=== PATIENT | female | born 1930 | race Caucasian/White ===

== ENCOUNTER 2016-09-19 12:18 | Emergency (ER) | payer MEDICARE ==
[~2016-09-19 12:18] MED LIST: ACETAMINOPHEN500 M1 PO; ADVAIR 100-501 EACH INH; COUMADIN4 MG PO; DIGITEK125 MCG PEG; DUONEB 2.5-0.5M1 AMP INH; KLOR-CON M2020 MEQ PO; KLOR-CON20 MEQ PO; LASIX40 MG PO; LOPRESSOR50 MG PEG; MUCINEX OTC; NORVASC5 MG PO; PREVACID30 M1 PO; SEROQUEL 25MG T25 MG PO; SINGULAIR10 MG PO; SINUS DECONGEST10 MG PO; SPIRIVA18 MCG INH; TUSSIN DM; VENTOLIN (2.5 MG/3 M INH; VITAMIN D50000 UNIT PO; ZESTRIL2.5 MG PO; ZOCOR20 MG PO; ZOLOFT50 MG PO
== END 2016-09-19 15:05 | disposition home or self-care (01) ==
LOC: FER 12:18
DX: K94.23 Gastrostomy malfunction (principal); Y83.3 Surgical operation with formation of external stoma as the cause of abnormal reaction of the patient, or of later complication, without mention of misadventure at the time of the procedure
CPT/HCPCS: 74000; 74020

== ENCOUNTER 2016-09-21 17:07 | Emergency (ER) | payer MEDICARE | END 2016-09-21 19:03 | disposition home or self-care (01) | LOC: FER 17:07 | DX: Z43.1 Encounter for attention to gastrostomy (principal); I11.9 Hypertensive heart disease without heart failure; J44.9 Chronic obstructive pulmonary disease, unspecified; E78.5 Hyperlipidemia, unspecified; Z79.01 Long term (current) use of anticoagulants; Z79.51 Long term (current) use of inhaled steroids; Z79.899 Other long term (current) drug therapy | CPT/HCPCS: 74000 ==

== ENCOUNTER 2016-10-12 14:14 | Emergency (ER) | payer MEDICARE ==
[2016-10-12 15:58] LABS: BILIRUBIN NEGATIVE (NEGATIVE); BLOOD NEGATIVE Ery/uL (NEGATIVE); CLARITY CLEAR (CLEAR); COLOR ORANGE (YELLOW); GLUCOSE (U) NORMAL (NORMAL); KETONE (U) NEGATIVE (NEGATIVE); LEUKOCYTES NEGATIVE Leu/uL (NEGATIVE); NITRITE NEGATIVE (NEGATIVE); SPECIFIC GRAVITY <=1.005 (1.001-1.030); UROBILINOGEN 0.2 mg/dL (0.2-1.0); pH 5.5 (5.0-9.0)
[2016-10-12 16:00] LABS: BASOPHIL 0.3 % (0-2); EOSINOPHIL 0.2 % (0-7); HCT 35.4 % (37.0-47.0); HGB 11.2 g/dl (12.5-16.0); LYMPHOCYTE 5.2 % (15-48); MCH 25.9 pg (25.0-31.0); MCHC 31.6 g/dL (32.0-36.0); MCV 81.9 fL (78.0-100.0); MPV 10.9 fL (6.0-9.5); NEUTROPHIL 87.3 % (41-80); PLT 284 K/uL (150-400); RBC 4.32 M/uL (4.20-5.40); RDW 17.2 % (11.5-14.0); WBC 15.5 K/uL (4.0-10.5)
[2016-10-12 16:02] LABS: PROTEIN NEGATIVE (NEGATIVE)
[2016-10-12 16:02] LABS: INR 2.36 (0.9-1.2); PROTHROMBIN TIME 25.2 SECONDS (11.7-14.0)
[2016-10-12 17:43] LABS: ALBUMIN 2.9 g/dL (3.4-4.8); BILIRUBIN - TOTAL 0.2 mg/dL (0.1-1.0); CREATININE 0.8 mg/dL (0.5-1.0); GLOBULIN (CALCULATION) 3.5 g/dL (2.2-4.2); LACTIC ACID 1.3 mmol/L (0.5-2.2); TOTAL PROTEIN 6.4 g/dL (6.4-8.3)
== END 2016-10-12 19:43 | disposition home or self-care (01) ==
LOC: FER 14:14
PROVIDERS: Emergency Medicine
DX: J44.9 Chronic obstructive pulmonary disease, unspecified (principal); E86.0 Dehydration; R11.10 Vomiting, unspecified; R82.90 Unspecified abnormal findings in urine; I10 Essential (primary) hypertension; Z87.19 Personal history of other diseases of the digestive system; Z87.891 Personal history of nicotine dependence; Z88.8 Allergy status to other drugs, medicaments and biological substances; Z79.51 Long term (current) use of inhaled steroids; Z79.01 Long term (current) use of anticoagulants; Z79.899 Other long term (current) drug therapy; Z93.1 Gastrostomy status
CPT/HCPCS: 36415; 36600; 74022; 80053; 80162; 81003; 82803; 83605; 85025; 85610; 87040; 87088